=== PATIENT | male | born 1985 | race Caucasian/White ===

== ENCOUNTER 2021-12-10 11:13 | Emergency (ER) | payer OTHER, MEDICAID, SELFPAY ==
[2021-12-10 11:33] VITALS: BP 122/77; PULSE 87; RESP 20; TEMP 36.7; O2SAT 97
[2021-12-10] MEDS: SODIUM CHLORIDE 0.9% 1,000 ML 1000 ML IV (12:35)
--- NOTE | 2021-12-10 12:41 | PC.NURSE ---
Patient became diaphoretic, pale and felt like he was going to pass out patient was laid flat. Heart rate dropped into high 30's, patient remained alert and orients. Patient fearful of needles and reports I always pass out with needles
[2021-12-10 12:48] LABS: Add Manual Diff / Slide Review NO; Basophils Absolute Auto 0 /uL (0-100); Basophils Percent Auto 0.7 % (0-2); Eosinophils Absolute Auto 100 /uL (0-450); Eosinophils Percent Auto 1.8 % (2-4); Hematocrit 44.2 % (41-53); Hemoglobin 15.5 g/dL (13.5-17.5); Lymphocytes Absolute Auto 2300 /uL (1100-4500); Lymphocytes Percent Auto 41.8 % (25-40); Mean Corpuscular HGB Conc 35.2 % (30-36); Mean Corpuscular Hemoglobin 31.2 PG (26-34); Mean Corpuscular Volume 88.6 fL (80-100); Monocytes Absolute Auto 400 /uL (0-900); Monocytes Percent Auto 7.1 % (3-14); Neutrophils Absolute Auto 2600 /uL (1500-7000); Neutrophils Percent Auto 48.6 % (50-75); Platelet Count 252 X10^3/uL (150-400); Red Blood Cell Count 4.99 X10^6/uL (4.5-5.9); Red Cell Distribution Width 12.2 % (11.6-14.8); White Blood Cell Count 5.4 X10^3/uL (4.5-11.0)
--- NOTE | 2021-12-10 12:48 | ED_ITS ---
HPI - Abdominal Pain <RACHEAL Tinoco - Last Filed: 12/10/21 16:20> General Chief Complaint: Abdominal Pain Stated Complaint: Sharp pain lower left abd, faint Time Seen by Provider: 12/10/21 11:56 Source: patient Mode of arrival: Ambulatory History of Present Illness HPI narrative: This is a 36-year-old male with history of ADHD and depression presents to the emergency department complaining of left upper quadrant pain for the last 2 weeks, if they is a vagal episode which happened 3 days ago when he was pushing on his left upper quadrant, he states he felt it coming on and then kneeled down on the ground and then woke up on the floor. He denies any known fever, he states he quit taking his sertraline, Adderall, marijuana, and alcohol 1 month ago cold turkey. He states he has had some difficulty concentrating, and various neurologic complaints over the last month. He denies any audio or visual hallucinations, he denies any suicidal or homicidal ideation, he denies using any substances at this time. He states that he fears that a friend of his is drugging him with ecstasy and caffeine because he has had euphoric sensations after food and then slept for 2 days afterwards. He states that he has had chronic fatigue over the last 2 months. He states he just lost his job, he is unable to pay child support, and may lose his apartment, but he is very concerned about why he has this left upper quadrant pain. He denies any blood in his stool, he denies any dysuria or urinary complaint, he denies any fever, weakness, dizziness, shortness of breath, chest pain, back pain, rectal pain, in all discharge, testicular pain, or other symptoms. He states that his primary care providers Dr. Monsalve and he was unable to get an appointment with him any time soon. He endorses constant fears that somebody is putting drugs in his food. Related Data Home Medications Medication Instructions Recorded Confirmed No Known Home Medications 08/25/20 08/25/20 Allergies Allergy/AdvReac Type Severity Reaction Status Date / Time Penicillins AdvReac Intermediate rash Verified 12/10/21 11:36 Review of Systems <RACHEAL Tinoco - Last Filed: 12/10/21 16:20> Review of Systems Narrative: General: denies fever, chills, malaise, sweats, fatigue Head/Neck: denies headache, neck pain, dizziness Eyes: denies visual changes, eye pain Cardio: denies chest pain, palpitations, edema Respiratory: denies dyspnea, cough, orthopnea GI: Endorses left upper quadrant abdominal pain, denies nausea, vomiting, or diarrhea patient denied Toradol when offered for pain : denies dysuria, hematuria, urinary retention, frequency or incontinence MSK: denies joint pain, muscle weakness Skin: denies rash, itching, skin lesions or other Neuro: denies numbness, tingling, endorses vasovagal response with IV placement today, which was similar in nature to the vasovagal response he had 3 days ago. He denies any recent trauma Patient History <RACHEAL Tinoco - Last Filed: 12/10/21 16:20> Medical History No active medical problems Social History Smoking Status: Unknown if ever smoked Smoking Status: Unknown if ever smoked Substance Use Type: does not use Exam <RACHEAL Tinoco - Last Filed: 12/10/21 16:20> Narrative Exam Narrative: Independently reviewed vitals signs and nursing notes. General: cooperative, comfortable, in no acute distress, well developed and well groomed Head: atraumatic, symmetrical facial expressions Neck: supple, atraumatic, without lymphadenopathy. Eyes: pupils equal round and reactive, EOMI, conjunctiva normal Nose: nares patent, no rhinorrhea Mouth/Throat: uvula midline, moist mucus membranes Cardiovascular: regular rate and rhythm, no peripheral edema, warm extremities Respiratory: normal effort, able to speak in complete sentences, no audible wheezing, stridor, or rales. No retractions or tachypnea. GI: abdomen soft, nontender to palpation, nondistended, no masses, no exquisite tenderness with exam, without guarding or rebound. MSK: moves all extremities, ambulatory w/steady gait, neurovascularly intact, no weakness Skin: brisk capillary refill, no rash, no erythema Neuro: normal speech and cognition, A&O x3, normal tone Psych: mental status is grossly normal, congruent mood, normal affect, random flight of ideas, paranoid about being drugged in his food, talkative, pleasant and cooperative Initial Vital Signs Initial Vital Signs: Vital Signs Temperature 98.0 F 12/10/21 11:33 Pulse Rate 87 12/10/21 11:33 Respiratory Rate 20 12/10/21 11:33 Blood Pressure 122/77 12/10/21 11:33 Pulse Oximetry 97 12/10/21 11:33 <Shahriar Simmons DO - Last Filed: 12/10/21 16:24> Initial Vital Signs Initial Vital Signs: Vital Signs Temperature 98.0 F 12/10/21 11:33 Pulse Rate 87 12/10/21 11:33 Respiratory Rate 20 12/10/21 11:33 Blood Pressure 122/77 12/10/21 11:33 Pulse Oximetry 97 12/10/21 11:33 Course <RACHEAL Tinoco - Last Filed: 12/10/21 16:20> Orders Ordered: ED Orders 12/10/21 11:35 Consult to [employer] - [employer] Chief Stat 12/10/21 11:57 EKG-12 Lead Stat 12/10/21 12:27 CRP [C-Reactive Protein Quant] Stat Complete Blood Count AUTO DIFF Stat Comprehensive Metabolic Panel Stat Lipase Stat TSH [Thyroid Stimulating Hormone] Stat Troponin & CK Cardiac Panel Stat 12/10/21 12:52 CT abdomen pelvis w con Stat 12/10/21 14:04 UA Complete [Urinalysis and Microscopic] Stat Urine Drug Screen, Rapid Stat Discontinued Medications Sodium Chloride (Normal Saline 0.9%) 1,000 mls @ 1,000 mls/hr IV BOLUS ONE Stop: 12/10/21 13:31 Last Infusion: 12/10/21 13:55 Dose: 0 mls/hr Documented by: Admin: 12/10/21 12:35 Dose: 1,000 mls/hr Documented by: DINORAH Ketorolac Tromethamine (Ketorolac 30 Mg/Ml Vial) 15 mg IV NOW ONE Stop: 12/10/21 12:50 Last Admin: 12/10/21 16:04 Dose: Not Given Documented by: ELZA Consultations Consultation #1: Discussion with Alexia from social Work about mental health evaluation. A referral for social work was place, patient does not currently have a counselor or therapist, recommend neuropsych evaluation. 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 Stat 12/10/21 11:57 EKG-12 Lead Stat 12/10/21 12:27 CRP [C-Reactive Protein Quant] Stat Complete Blood Count AUTO DIFF Stat Comprehensive Metabolic Panel Stat Lipase Stat TSH [Thyroid Stimulating Hormone] Stat Troponin & CK Cardiac Panel Stat 12/10/21 12:52 CT abdomen pelvis w con Stat 12/10/21 14:04 UA Complete [Urinalysis and Microscopic] Stat Urine Drug Screen, Rapid Stat Discontinued Medications Sodium Chloride (Normal Saline 0.9%) 1,000 mls @ 1,000 mls/hr IV BOLUS ONE Stop: 12/10/21 13:31 Last Infusion: 12/10/21 13:55 Dose: 0 mls/hr Documented by: Admin: 12/10/21 12:35 Dose: 1,000 mls/hr Documented by: DINORAH Ketorolac Tromethamine (Ketorolac 30 Mg/Ml Vial) 15 mg IV NOW ONE Stop: 12/10/21 12:50 Last Admin: 12/10/21 16:04 Dose: Not Given Documented by: ELZA Vital Signs Vital signs: Vital Signs - 8 hr 12/10/21 11:33 12/10/21 13:13 12/10/21 13:30 Temperature 98.0 F Pulse Rate 87 71 75 Respiratory Rate 20 12 18 Blood Pressure 122/77 113/69 Pulse Oximetry 97 99 99 12/10/21 15:54 12/10/21 16:00 Temperature Pulse Rate 84 Respiratory Rate Blood Pressure 137/73 Pulse Oximetry 97 98 MDM - Abdominal Pain <RACHEAL Tinoco - Last Filed: 12/10/21 16:20> Lab Data Result diagrams: 12/10/21 12:27 12/10/21 12:27 Labs: Lab Results 12/10/21 12/10/21 12/10/21 Range/Units 12:27 12:27 12:27 WBC 5.4 (4.5-11.0) X10^3/uL RBC 4.99 (4.5-5.9) X10^6/uL Hgb 15.5 (13.5-17.5) g/dL Hct 44.2 (41-53) % MCV 88.6 (80-100) fL MCH 31.2 (26-34) PG MCHC 35.2 (30-36) % RDW 12.2 (11.6-14.8) % Plt Count 252 (150-400) X10^3/uL Neut % (Auto) 48.6 L (50-75) % Lymph % (Auto) 41.8 H (25-40) % [place] % (Auto) 7.1 (3-14) % Eos % (Auto) 1.8 L (2-4) % Baso % (Auto) 0.7 (0-2) % Neut # (Auto) 2600 (6768-1451) /uL Lymph # (Auto) 2300 (0955-6017) /uL [place] # (Auto) 400 (0-900) /uL Eos # (Auto) 100 (0-450) /uL Baso # (Auto) 0 (0-100) /uL Sodium 141 (137-145) mmol/L Potassium 4.4 (3.4-5.1) mmol/L Chloride 104 (98-107) mmol/L Carbon Dioxide 26 (22-32) mmol/L BUN 14 (9-20) mg/dL Creatinine 0.85 (0.66-1.25) mg/dL Estimated GFR > 60.0 (>60) mL/min BUN/Creatinine Ratio 16.5 (6-22) Glucose 93 (70-100) mg/dL Calcium 9.6 (8.4-10.2) mg/dL Total Bilirubin 1.2 (0.2-1.3) mg/dL AST 38 (17-59) IU/L ALT 40 (<50) IU/L Alkaline Phosphatase 36 L (38-126) U/L Total Creatine Kinase 76 (55-170) U/L CK-MB (CK-2) TNP CK-MB (CK-2) Rel Index TNP Troponin I < 0.012 (0.01-0.034) ng/mL C-Reactive Protein (<1.0) mg/dL Total Protein 8.3 H (6.3-8.2) g/dL Albumin 5.1 H (3.5-5.0) g/dL Globulin 3.2 (1.7-4.1) g/dL Albumin/Globulin Ratio 1.6 (1.0-2.8) Lipase 298 (23-300) U/L TSH (0.47-4.68) uIU/mL Urine Color Urine Appearance Urine pH (4.5-8.0) Ur Specific [place] (1.000-1.035) Urine Protein (Negative) Urine Glucose (UA) (Negative) g/dL Urine Ketones (NEGATIVE) Urine Occult Blood (Negative) Urine Nitrate (Negative) Urine Bilirubin (NEGATIVE) Urine Urobilinogen (0.2) E.U./dL Ur Leukocyte Esterase (NEGATIVE) Urine RBC (0-5/HPF) Urine WBC (0-5/HPF) Urine Bacteria (None) Ur Culture Indicated? U Opiates 300ng/mL cut (Negative) Ur Oxycodone Screen (Negative) Urine Methadone Screen (Negative) Ur Barbiturates Screen (Negative) U Tricyclic Antidepress (Negative) Ur Phencyclidine Scrn (Negative) Ur Amphetamines Screen (Negative) U Methamphetamines Scrn (Negative) Ur MDMA Scrn (Ecstasy) (Negative) U Benzodiazepines Scrn (Negative) Urine Cocaine Screen (Negative) U Marijuana (THC) Screen (Negative) 12/10/21 12/10/21 12/10/21 Range/Units 12:27 12:27 14:04 WBC (4.5-11.0) X10^3/uL RBC (4.5-5.9) X10^6/uL Hgb (13.5-17.5) g/dL Hct (41-53) % MCV (80-100) fL MCH (26-34) PG MCHC (30-36) % RDW (11.6-14.8) % Plt Count (150-400) X10^3/uL Neut % (Auto) (50-75) % Lymph % (Auto) (25-40) % [place] % (Auto) (3-14) % Eos % (Auto) (2-4) % Baso % (Auto) (0-2) % Neut # (Auto) (3761-6572) /uL Lymph # (Auto) (8969-9999) /uL [place] # (Auto) (0-900) /uL Eos # (Auto) (0-450) /uL Baso # (Auto) (0-100) /uL Sodium (137-145) mmol/L Potassium (3.4-5.1) mmol/L Chloride (98-107) mmol/L Carbon Dioxide (22-32) mmol/L BUN (9-20) mg/dL Creatinine (0.66-1.25) mg/dL Estimated GFR (>60) mL/min BUN/Creatinine Ratio (6-22) Glucose (70-100) mg/dL Calcium (8.4-10.2) mg/dL Total Bilirubin (0.2-1.3) mg/dL AST (17-59) IU/L ALT (<50) IU/L Alkaline Phosphatase (38-126) U/L Total Creatine Kinase (55-170) U/L CK-MB (CK-2) CK-MB (CK-2) Rel Index Troponin I (0.01-0.034) ng/mL C-Reactive Protein < 0.5 (<1.0) mg/dL Total Protein (6.3-8.2) g/dL Albumin (3.5-5.0) g/dL Globulin (1.7-4.1) g/dL Albumin/Globulin Ratio (1.0-2.8) Lipase (23-300) U/L TSH 1.21 (0.47-4.68) uIU/mL Urine Color Yellow Urine Appearance Clear Urine pH 7.0 (4.5-8.0) Ur Specific [place] <=1.005 (1.000-1.035) Urine Protein Negative (Negative) Urine Glucose (UA) Negative (Negative) g/dL Urine Ketones Negative (NEGATIVE) Urine Occult Blood Negative (Negative) Urine Nitrate Negative (Negative) Urine Bilirubin Negative (NEGATIVE) Urine Urobilinogen 0.2 (0.2) E.U./dL Ur Leukocyte Esterase Negative (NEGATIVE) Urine RBC None seen (0-5/HPF) Urine WBC None seen (0-5/HPF) Urine Bacteria None seen (None) Ur Culture Indicated? Cult not indicated U Opiates 300ng/mL cut (Negative) Ur Oxycodone Screen (Negative) Urine Methadone Screen (Negative) Ur Barbiturates Screen (Negative) U Tricyclic Antidepress (Negative) Ur Phencyclidine Scrn (Negative) Ur Amphetamines Screen (Negative) U Methamphetamines Scrn (Negative) Ur MDMA Scrn (Ecstasy) (Negative) U Benzodiazepines Scrn (Negative) Urine Cocaine Screen (Negative) U Marijuana (THC) Screen (Negative) 12/10/21 Range/Units 14:04 WBC (4.5-11.0) X10^3/uL RBC (4.5-5.9) X10^6/uL Hgb (13.5-17.5) g/dL Hct (41-53) % MCV (80-100) fL MCH (26-34) PG MCHC (30-36) % RDW (11.6-14.8) % Plt Count (150-400) X10^3/uL Neut % (Auto) (50-75) % Lymph % (Auto) (25-40) % [place] % (Auto) (3-14) % Eos % (Auto) (2-4) % Baso % (Auto) (0-2) % Neut # (Auto) (7886-2685) /uL Lymph # (Auto) (1872-5602) /uL [place] # (Auto) (0-900) /uL Eos # (Auto) (0-450) /uL Baso # (Auto) (0-100) /uL Sodium (137-145) mmol/L Potassium (3.4-5.1) mmol/L Chloride (98-107) mmol/L Carbon Dioxide (22-32) mmol/L BUN (9-20) mg/dL Creatinine (0.66-1.25) mg/dL Estimated GFR (>60) mL/min BUN/Creatinine Ratio (6-22) Glucose (70-100) mg/dL Calcium (8.4-10.2) mg/dL Total Bilirubin (0.2-1.3) mg/dL AST (17-59) IU/L ALT (<50) IU/L Alkaline Phosphatase (38-126) U/L Total Creatine Kinase (55-170) U/L CK-MB (CK-2) CK-MB (CK-2) Rel Index Troponin I (0.01-0.034) ng/mL C-Reactive Protein (<1.0) mg/dL Total Protein (6.3-8.2) g/dL Albumin (3.5-5.0) g/dL Globulin (1.7-4.1) g/dL Albumin/Globulin Ratio (1.0-2.8) Lipase (23-300) U/L TSH (0.47-4.68) uIU/mL Urine Color Urine Appearance Urine pH (4.5-8.0) Ur Specific [place] (1.000-1.035) Urine Protein (Negative) Urine Glucose (UA) (Negative) g/dL Urine Ketones (NEGATIVE) Urine Occult Blood (Negative) Urine Nitrate (Negative) Urine Bilirubin (NEGATIVE) Urine Urobilinogen (0.2) E.U./dL Ur Leukocyte Esterase (NEGATIVE) Urine RBC (0-5/HPF) Urine WBC (0-5/HPF) Urine Bacteria (None) Ur Culture Indicated? U Opiates 300ng/mL cut Negative (Negative) Ur Oxycodone Screen Negative (Negative) Urine Methadone Screen Negative (Negative) Ur Barbiturates Screen Negative (Negative) U Tricyclic Antidepress Negative (Negative) Ur Phencyclidine Scrn Negative (Negative) Ur Amphetamines Screen Negative (Negative) U Methamphetamines Scrn Negative (Negative) Ur MDMA Scrn (Ecstasy) Negative (Negative) U Benzodiazepines Scrn Negative (Negative) Urine Cocaine Screen Negative (Negative) U Marijuana (THC) Screen Negative (Negative) Imaging Data CT scan - abdomen/pelvis: Radiologist's Impression: PROCEDURE:? CT ABDOMEN PELVIS W CON ? INDICATIONS:? LUQ pain x 2 weeks, ? TECHNIQUE:? After the administration of oral and IV contrast, axial sections were acquired from the lung bases to the pubic symphysis.? Coronal and sagittal reformats were performed.? For radiation dose reduction, the following was used:? automated exposure control, adjustment of mA and/or kV according to patient size. ? COMPARISON:? None. ? FINDINGS:? Image quality:? Excellent.? ? Lung bases:? Unremarkable.? ? Heart:? No significant findings. ? ? ABDOMEN: Liver:? Unremarkable.? ? Gallbladder:? Unremarkable.? ? Biliary ducts:? Unremarkable.? ? Pancreas:? Unremarkable.? ? Spleen:? Unremarkable.? ? Adrenal Glands:? Unremarkable.? ? Kidneys and Ureters:? No hydronephrosis can be seen involving either kidney.? The kidneys demonstrate normal size and enhance symmetrically. ? Stomach and Bowel:? Stomach, small bowel loops, and colon are unremarkable.? A moderate amount of stool can be seen within the colon. A normal appendix is incidentally noted.? Peritoneum:? No abnormal intraperitoneal fluid.? No free air.? ? Ventral Wall: ? No hernia.? Abdominal Nodes:? No retroperitoneal or mesenteric adenopathy by size criteria.? Vessels:? Aorta and inferior vena cava are normal in size.? ? PELVIS: Pelvic Organs:? Unremarkable.? ? Bladder:? Unremarkable.? ? Pelvic Nodes: No enlarged lymph nodes.? Miscellaneous: No inguinal hernias are seen. ? ? ? Bones:? Mild dextroconvex scoliotic curvature is seen.? ? 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 ? ? IMPRESSION:? ? There is a moderate amount of stool seen within the colon. Please correlate with an underlying history of constipation.? ? Normal appearing spleen and left kidney.? No hydronephrosis. ? 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 Dictated by: Alec Rudolph M.D. on 12/10/2021 at 12:08 ? ? Approved by: Alec Rudolph M.D. on 12/10/2021 at 12:10 ? ECG Data Interpretation: EKG reviewed by myself and Dr. Simmons reveals normal sinus rhythm at [79] bpm with regular axis and intervals. No STEMI, ST segment changes, arrhythmia, or acute ischemic changes. MDM Narrative Medical decision making narrative: This is a 36-year-old male who presents to the emergency department with 2 weeks of left upper quadrant abdominal pain which he associates with an episode of syncope 3 days ago when he was pushing on his left upper quadrant. Patient quit taking his sertraline, Adderall, marijuana, and alcohol 1 month ago without physician guidance. He endorses having neuro psychological complaints since common feeling chronically fatigued. He is concerned that somebody is drugging his food with ecstasy, caffeine, and sedatives. Patient has multiple paranoid ideas and a social work referral was placed. Patient would benefit from a mental health evaluation he. His primary care providers Dr. Monsalve. Patient states his last BM was 1 or more days ago. He states that his last bowel movem ent was firm and hard. His CT abdomen shows a moderate amount of stool, which clinically correlates to constipation. There is no free air, or free fluid in his abdomen. All of his lab work is unremarkable, CRP is negative, troponin negative, urine drug screen was negative, no leukocytosis, no elevation in liver enzymes, lipase is 298 without priors to compare to, UA was negative for abnormality. Please see Alexia from Social Work's Note. Patient understands to follow-up with his primary care provider regarding his abrupt medication cessation, his likely under treated mental health situation, he was given referral to schedule Behavioral Health to follow up with and establish a counselor. Patient understands to follow up accordingly and will return to the emergency department for any new or worsening symptoms. Patient denies any audiovisual hallucinations, any homicidal or suicidal ideation, or any intent to hurt himself. He has a supportive family, and the safety contract to follow-up with his primary care provider about this. He was given resources for state insurance benefits from social Work. Patient is appropriate and amenable to discharge home. Vital signs are stable on repeat examination is unremarkable. Patient has been informed of results. Patient has been given strict return to ER precautions for any new or worsening symptoms. Patient understands to follow up closely with outpatient providers as instructed. Patient understands plan and agrees to discharge home. All questions and concerns answered at this time. <Shahriar Simmons, DO - Last Filed: 12/10/21 16:24> Lab Data Labs: Lab Results 12/10/21 12/10/21 12/10/21 Range/Units 12:27 12:27 12:27 WBC 5.4 (4.5-11.0) X10^3/uL RBC 4.99 (4.5-5.9) X10^6/uL Hgb 15.5 (13.5-17.5) g/dL Hct 44.2 (41-53) % MCV 88.6 (80-100) fL MCH 31.2 (26-34) PG MCHC 35.2 (30-36) % RDW 12.2 (11.6-14.8) % Plt Count 252 (150-400) X10^3/uL Neut % (Auto) 48.6 L (50-75) % Lymph % (Auto) 41.8 H (25-40) % [place] % (Auto) 7.1 (3-14) % Eos % (Auto) 1.8 L (2-4) % Baso % (Auto) 0.7 (0-2) % Neut # (Auto) 2600 (8034-8029) /uL Lymph # (Auto) 2300 (4492-0017) /uL [place] # (Auto) 400 (0-900) /uL Eos # (Auto) 100 (0-450) /uL Baso # (Auto) 0 (0-100) /uL Sodium 141 (137-145) mmol/L Potassium 4.4 (3.4-5.1) mmol/L Chloride 104 (98-107) mmol/L Carbon Dioxide 26 (22-32) mmol/L BUN 14 (9-20) mg/dL Creatinine 0.85 (0.66-1.25) mg/dL Estimated GFR > 60.0 (>60) mL/min BUN/Creatinine Ratio 16.5 (6-22) Glucose 93 (70-100) mg/dL Calcium 9.6 (8.4-10.2) mg/dL Total Bilirubin 1.2 (0.2-1.3) mg/dL AST 38 (17-59) IU/L ALT 40 (<50) IU/L Alkaline Phosphatase 36 L (38-126) U/L Total Creatine Kinase 76 (55-170) U/L CK-MB (CK-2) TNP CK-MB (CK-2) Rel Index TNP Troponin I < 0.012 (0.01-0.034) ng/mL C-Reactive Protein (<1.0) mg/dL Total Protein 8.3 H (6.3-8.2) g/dL Albumin 5.1 H (3.5-5.0) g/dL Globulin 3.2 (1.7-4.1) g/dL Albumin/Globulin Ratio 1.6 (1.0-2.8) Lipase 298 (23-300) U/L TSH (0.47-4.68) uIU/mL Urine Color Urine Appearance Urine pH (4.5-8.0) Ur Specific [place] (1.000-1.035) Urine Protein (Negative) Urine Glucose (UA) (Negative) g/dL Urine Ketones (NEGATIVE) Urine Occult Blood (Negative) Urine Nitrate (Negative) Urine Bilirubin (NEGATIVE) Urine Urobilinogen (0.2) E.U./dL Ur Leukocyte Esterase (NEGATIVE) Urine RBC (0-5/HPF) Urine WBC (0-5/HPF) Urine Bacteria (None) Ur Culture Indicated? U Opiates 300ng/mL cut (Negative) Ur Oxycodone Screen (Negative) Urine Methadone Screen (Negative) Ur Barbiturates Screen (Negative) U Tricyclic Antidepress (Negative) Ur Phencyclidine Scrn (Negative) Ur Amphetamines Screen (Negative) U Methamphetamines Scrn (Negative) Ur MDMA Scrn (Ecstasy) (Negative) U Benzodiazepines Scrn (Negative) Urine Cocaine Screen (Negative) U Marijuana (THC) Screen (Negative) 12/10/21 12/10/21 12/10/21 Range/Units 12:27 12:27 14:04 WBC (4.5-11.0) X10^3/uL RBC (4.5-5.9) X10^6/uL Hgb (13.5-17.5) g/dL Hct (41-53) % MCV (80-100) fL MCH (26-34) PG MCHC (30-36) % RDW (11.6-14.8) % Plt Count (150-400) X10^3/uL Neut % (Auto) (50-75) % Lymph % (Auto) (25-40) % [place] % (Auto) (3-14) % Eos % (Auto) (2-4) % Baso % (Auto) (0-2) % Neut # (Auto) (8222-6768) /uL Lymph # (Auto) (1271-0738) /uL [place] # (Auto) (0-900) /uL Eos # (Auto) (0-450) /uL Baso # (Auto) (0-100) /uL Sodium (137-145) mmol/L Potassium (3.4-5.1) mmol/L Chloride (98-107) mmol/L Carbon Dioxide (22-32) mmol/L BUN (9-20) mg/dL Creatinine (0.66-1.25) mg/dL Estimated GFR (>60) mL/min BUN/Creatinine Ratio (6-22) Glucose (70-100) mg/dL Calcium (8.4-10.2) mg/dL Total Bilirubin (0.2-1.3) mg/dL AST (17-59) IU/L ALT (<50) IU/L Alkaline Phosphatase (38-126) U/L Total Creatine Kinase (55-170) U/L CK-MB (CK-2) CK-MB (CK-2) Rel Index Troponin I (0.01-0.034) ng/mL C-Reactive Protein < 0.5 (<1.0) mg/dL Total Protein (6.3-8.2) g/dL Albumin (3.5-5.0) g/dL Globulin (1.7-4.1) g/dL Albumin/Globulin Ratio (1.0-2.8) Lipase (23-300) U/L TSH 1.21 (0.47-4.68) uIU/mL Urine Color Yellow Urine Appearance Clear Urine pH 7.0 (4.5-8.0) Ur Specific [place] <=1.005 (1.000-1.035) Urine Protein Negative (Negative) Urine Glucose (UA) Negative (Negative) g/dL Urine Ketones Negative (NEGATIVE) Urine Occult Blood Negative (Negative) Urine Nitrate Negative (Negative) Urine Bilirubin Negative (NEGATIVE) Urine Urobilinogen 0.2 (0.2) E.U./dL Ur Leukocyte Esterase Negative (NEGATIVE) Urine RBC None seen (0-5/HPF) Urine WBC None seen (0-5/HPF) Urine Bacteria None seen (None) Ur Culture Indicated? Cult not indicated U Opiates 300ng/mL cut (Negative) Ur Oxycodone Screen (Negative) Urine Methadone Screen (Negative) Ur Barbiturates Screen (Negative) U Tricyclic Antidepress (Negative) Ur Phencyclidine Scrn (Negative) Ur Amphetamines Screen (Negative) U Methamphetamines Scrn (Negative) Ur MDMA Scrn (Ecstasy) (Negative) U Benzodiazepines Scrn (Negative) Urine Cocaine Screen (Negative) U Marijuana (THC) Screen (Negative) 12/10/21 Range/Units 14:04 WBC (4.5-11.0) X10^3/uL RBC (4.5-5.9) X10^6/uL Hgb (13.5-17.5) g/dL Hct (41-53) % MCV (80-100) fL MCH (26-34) PG MCHC (30-36) % RDW (11.6-14.8) % Plt Count (150-400) X10^3/uL Neut % (Auto) (50-75) % Lymph % (Auto) (25-40) % [place] % (Auto) (3-14) % Eos % (Auto) (2-4) % Baso % (Auto) (0-2) % Neut # (Auto) (5897-5782) /uL Lymph # (Auto) (3188-3718) /uL [place] # (Auto) (0-900) /uL Eos # (Auto) (0-450) /uL Baso # (Auto) (0-100) /uL Sodium (137-145) mmol/L Potassium (3.4-5.1) mmol/L Chloride (98-107) mmol/L Carbon Dioxide (22-32) mmol/L BUN (9-20) mg/dL Creatinine (0.66-1.25) mg/dL Estimated GFR (>60) mL/min BUN/Creatinine Ratio (6-22) Glucose (70-100) mg/dL Calcium (8.4-10.2) mg/dL Total Bilirubin (0.2-1.3) mg/dL AST (17-59) IU/L ALT (<50) IU/L Alkaline Phosphatase (38-126) U/L Total Creatine Kinase (55-170) U/L CK-MB (CK-2) CK-MB (CK-2) Rel Index Troponin I (0.01-0.034) ng/mL C-Reactive Protein (<1.0) mg/dL Total Protein (6.3-8.2) g/dL Albumin (3.5-5.0) g/dL Globulin (1.7-4.1) g/dL Albumin/Globulin Ratio (1.0-2.8) Lipase (23-300) U/L TSH (0.47-4.68) uIU/mL Urine Color Urine Appearance Urine pH (4.5-8.0) Ur Specific [place] (1.000-1.035) Urine Protein (Negative) Urine Glucose (UA) (Negative) g/dL Urine Ketones (NEGATIVE) Urine Occult Blood (Negative) Urine Nitrate (Negative) Urine Bilirubin (NEGATIVE) Urine Urobilinogen (0.2) E.U./dL Ur Leukocyte Esterase (NEGATIVE) Urine RBC (0-5/HPF) Urine WBC (0-5/HPF) Urine Bacteria (None) Ur Culture Indicated? U Opiates 300ng/mL cut Negative (Negative) Ur Oxycodone Screen Negative (Negative) Urine Methadone Screen Negative (Negative) Ur Barbiturates Screen Negative (Negative) U Tricyclic Antidepress Negative (Negative) Ur Phencyclidine Scrn Negative (Negative) Ur Amphetamines Screen Negative (Negative) U Methamphetamines Scrn Negative (Negative) Ur MDMA Scrn (Ecstasy) Negative (Negative) U Benzodiazepines Scrn Negative (Negative) Urine Cocaine Screen Negative (Negative) U Marijuana (THC) Screen Negative (Negative) Discharge Plan Departure Patient Disposition: Home Clinical Impression: Vaso-vagal reaction Constipation Qualifiers: Constipation type: unspecified constipation type Qualified Code(s): K59.00 - Constipation, unspecified Instructions: Constipation, Anxiety Disorders Activity Restrictions/Additional Instructions: *You have been diagnosed with constipation. Please follow-up with Dr. Monsalve after scheduled appointment later this week. Please include more high-fiber foods like fresh fruits and vegetables in her diet, stay hydrated with plenty of liquids, you may use MiraLax as needed for occasional constipation. Please call and make an appointment as [facility] for an evaluation. Thank you for your time today, on but that would not finding dangerous causes to your symptoms. I hope you feel better soon, please follow-up with Dr. Monsalve and [facility] for your needs in the future. *What to do: *Please continue to take your regular medications as directed. [ ] New medication prescriptions sent to your pharmacy: [ ] [ ] New medication written as a paper prescription [ x] No new medications given *Please follow up with your primary care provider in 2-3 days, call for an appo intment. Let them know you were seen in the Emergency Department and that we asked that you be seen for follow-up. We will electronically transmit a record of today's note if your PCP is in our system *If you do not have a primary care provider please contact [phone] to establish care with one of the [facility] primary care providers. *Return to Emergency Department if you should have any new, worsening or concerning symptoms, such as [fever greater than 101F, chills, worsening pain, persistent vomiting or other bothersome symptoms] Prescriptions: No Action No Known Home Medications 0RF Referrals: [facility] [Provider Group] Lulu Monsalve MD [Primary Care Provider] - <Shahriar Simmons, - Last Filed: 12/10/21 16:24> Cosign ED Attending Cosignature Attestation: Dr Simmons Co-Sign Statement: I was available for consultation during this patient's emergency department visit. This chart is signed by myself for administrative purposes only. I did not have direct contact with this patient during this visit. They were seen independently by the APC.
--- NOTE | 2021-12-10 12:52 | DI.CT.S_ITS ---
PROCEDURE: CT ABDOMEN PELVIS W CON INDICATIONS: LUQ pain x 2 weeks, TECHNIQUE: After the administration of oral and IV contrast, axial sections were acquired from the lung bases to the pubic symphysis. Coronal and sagittal reformats were performed. For radiation dose reduction, the following was used: automated exposure control, adjustment of mA and/or kV according to patient size. COMPARISON: None. FINDINGS: Image quality: Excellent. Lung bases: Unremarkable. Heart: No significant findings. ABDOMEN: Liver: Unremarkable. Gallbladder: Unremarkable. Biliary ducts: Unremarkable. Pancreas: Unremarkable. Spleen: Unremarkable. Adrenal Glands: Unremarkable. Kidneys and Ureters: No hydronephrosis can be seen involving either kidney. The kidneys demonstrate normal size and enhance symmetrically. Stomach and Bowel: Stomach, small bowel loops, and colon are unremarkable. A moderate amount of stool can be seen within the colon. A normal appendix is incidentally noted. Peritoneum: No abnormal intraperitoneal fluid. No free air. Ventral Wall: No hernia. Abdominal Nodes: No retroperitoneal or mesenteric adenopathy by size criteria. Vessels: Aorta and inferior vena cava are normal in size. PELVIS: Pelvic Organs: Unremarkable. Bladder: Unremarkable. Pelvic Nodes: No enlarged lymph nodes. Miscellaneous: No inguinal hernias are seen. Bones: Mild dextroconvex scoliotic curvature is seen. 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 IMPRESSION: There is a moderate amount of stool seen within the colon. Please correlate with an underlying history of constipation. Normal appearing spleen and left kidney. No hydronephrosis. 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 on 12/10/2021 at 12:08 Approved by: Alec Rudolph M.D. on 12/10/2021 at 12:10
[2021-12-10 13:04] LABS: Alanine Aminotransferase 40 IU/L (<50); Albumin 5.1 g/dL (3.5-5.0); Albumin Globulin Ratio 1.6 (1.0-2.8); Alkaline Phosphatase 36 U/L (38-126); Aspartate Aminotransferase 38 IU/L (17-59); BUN Creatinine Ratio 16.5 (6-22); Bilirubin Total 1.2 mg/dL (0.2-1.3); Blood Urea Nitrogen 14 mg/dL (9-20); Calcium 9.6 mg/dL (8.4-10.2); Carbon Dioxide 26 mmol/L (22-32); Chloride 104 mmol/L (98-107); Creatine Kinase 76 U/L (55-170); Estimated Glomerular Filt Rate > 60.0 mL/min (>60); Globulin 3.2 g/dL (1.7-4.1); Glucose 93 mg/dL (70-100); HEMOLYSIS < 15 (0-50); Lipase 298 U/L (23-300); Potassium 4.4 mmol/L (3.4-5.1); Sodium 141 mmol/L (137-145); Total Protein 8.3 g/dL (6.3-8.2)
--- NOTE | 2021-12-10 13:09 | PC.NURSE ---
While patient was at CT mother reports great concern of patients mental health.Over the last two months patient has been concerned that people are pranking him or poisoning him. Mother reports he is on the verge of losing his housing and son. He just quit his job due to fear of people pranking him Patient and family have been attempting to get help but its road block after road block It appears that things have been worse since patient quit his medications.
[2021-12-10 13:13] VITALS: PULSE 71; RESP 12; O2SAT 99
[2021-12-10 13:16] LABS: Troponin I < 0.012 ng/mL (0.01-0.034)
[2021-12-10 13:30] VITALS: BP 113/69; PULSE 75; RESP 18; O2SAT 99
[2021-12-10 13:35] LABS: Thyroid Stimulating Hormone 1.21 uIU/mL (0.47-4.68)
[2021-12-10 13:39] LABS: C-Reactive Protein Quant < 0.5 mg/dL (<1.0)
[2021-12-10 14:10] LABS: Appearance Urine UA CLEAR; Bilirubin Urine UA NEGATIVE (NEGATIVE); Color Urine UA YELLOW; Glucose Urine UA NEGATIVE (Negative); Ketones Urine UA NEGATIVE (NEGATIVE); Leukocyte Esterase Urine UA NEGATIVE (NEGATIVE); Nitrite Urine UA NEGATIVE (Negative); Occult Blood Urine UA NEGATIVE (Negative); Protein Urine UA NEGATIVE (Negative); Specific Gravity Urine UA <=1.005 (1.000-1.035); Urobilinogen Urine UA 0.2 E.U./dL (0.2)
[2021-12-10 14:15] LABS: Ur Creatinine Normal (Normal); Ur Specific Gravity Normal (Normal); Urine pH Normal (Normal)
[2021-12-10 14:16] LABS: UR Morphine/Opiate cutoff 300 Negative (Negative); Urine Amphetamines Negative (Negative); Urine Barbiturates Negative (Negative); Urine Benzodiazepines Negative (Negative); Urine Cocaine Negative (Negative); Urine MDMA Negative (Negative); Urine Methadone Negative (Negative); Urine Methamphetamines Negative (Negative); Urine Oxycodone Negative (Negative); Urine Phencyclidine Negative (Negative); Urine Tetrahydrocannabinol Negative (Negative); Urine Tricyclic Antidepressant Negative (Negative)
[2021-12-10 15:03] LABS: Bacteria Urine None Seen; Culture Indicated Urine Cult Not Indicated; RBC Urine None Seen (0-5/HPF); WBC Urine None Seen (0-5/HPF)
--- NOTE | 2021-12-10 15:39 | CM.SWNOTE ---
GENERATION TECHNICIAN Assessment Note GENERATION TECHNICIAN receives consult and enters room to meet with patient. Patient is 36 y/o male who presents to ED due to concern for abdominal pain. In triage patient endorsed concern for his previous friends poisioning him and concern for housing and income. Patient presents to ED with mother. Patient provides consent for mother to be present. Mother privately endorses concern to RN about patient's MH. Patient presents as A/Ox4 euthymic, stable and congruent with mood. Patient continues to report that he is better than ever, on solid ground emotionally, spiritually and mentally. Patient endorses concern for physiological systems such as adrenal glands, fatigue, exhaustion and low energy after every task. Patient endorses his PCP is Dr. Monsalve and he set up appt for 01/02/22 but would like to be seen sooner if possible. Patient endorses he stopped taking Adderall, Sertraline and ETOH a few month ago. Patient denies HI and SI. Patient states that he wants to work and help others but has been impacted by his energy level. Patient endorses concern with income and states he does not have an income at this time and is in between jobs. GENERATION TECHNICIAN discusses food and harding benefits through the state. GENERATION TECHNICIAN offers to set up patient with applying for benefits and to call Dr. Monsalve's office to try to establish a sooner appt with PCP. Patient denies concern for MH but patient's mother endorses need for MH therapist and or Psychiatrist. Patient states he is open to this but continues to deny concern for MH and endorse his mental/emotional stability. GENERATION TECHNICIAN starts patient's application for food and harding state benefits and provides information for patient to call for f/u application. Patient endorses he has a son that he has 50/50 custody of as well. GENERATION TECHNICIAN calls PCP office but patient cannot be seen sooner due to PCP's availability and patient's start date of his [employer] insurance. It is reported that patient will be added to call back list if there are any cancellations. GENERATION TECHNICIAN calls [facility] on patient's behalf and it is reported that patient will need to call to establish care and see if he qualifies. GENERATION TECHNICIAN provides patient with a list MH providers that take his insurance and crisis contacts. Patient endorses that he feels safe to d/c home. Per ED provider Renu Crew, NURSING EDUCATION SPECIALIST, patient is medically clear for d/c. It is the opinion of this GENERATION TECHNICIAN that patient is safe to d/c to home. Plan: patient to d/c to home with PCP and specialist f/u, patient to f/u with state benefits and outpatient provider search. Alexia Whyte, GENERATION TECHNICIAN
[2021-12-10 15:54] VITALS: BP 137/73; O2SAT 97
[2021-12-10 16:00] VITALS: PULSE 84; O2SAT 98
== END 2021-12-10 16:15 | disposition home or self-care (01) ==
PROVIDERS: Emergency Medicine; Emergency Provider Nurse Practitioner Critical Care Medicine; PCP Student in an Organized Health Care Education/Training Program
DX: R55 Syncope and collapse (principal); K59.00 Constipation, unspecified
CPT/HCPCS: 36415; 74177; 80053; 80305; 81001; 82550; 83690; 84443; 84484; 85025; 86140; 93005; 96360; 99284

== ENCOUNTER 2022-01-28 09:25 | Emergency (ER) | payer OTHER, MEDICAID, SELFPAY ==
[2022-01-28 09:34] VITALS: BP 131/80; PULSE 83; RESP 16; TEMP 36.3; O2SAT 99; BMI 26.5
[2022-01-28] MEDS: ONDANSETRON 4 MG/2 ML INJ IV (10:14)
[2022-01-28 10:22] LABS: Add Manual Diff / Slide Review NO; Basophils Absolute Auto 0 /uL (0-100); Basophils Percent Auto 0.5 % (0-2); Eosinophils Absolute Auto 100 /uL (0-450); Eosinophils Percent Auto 1.4 % (2-4); Hematocrit 44.7 % (41-53); Hemoglobin 16.1 g/dL (13.5-17.5); Lymphocytes Absolute Auto 2300 /uL (1100-4500); Lymphocytes Percent Auto 27.7 % (25-40); Mean Corpuscular HGB Conc 35.9 % (30-36); Mean Corpuscular Hemoglobin 31.5 PG (26-34); Mean Corpuscular Volume 87.8 fL (80-100); Monocytes Absolute Auto 600 /uL (0-900); Monocytes Percent Auto 7.6 % (3-14); Neutrophils Absolute Auto 5300 /uL (1500-7000); Neutrophils Percent Auto 62.8 % (50-75); Platelet Count 233 X10^3/uL (150-400); Red Cell Distribution Width 12.1 % (11.6-14.8); White Blood Cell Count 8.5 X10^3/uL (4.5-11.0)
[2022-01-28 10:27] LABS: INR 1.1 (0.9-1.3); Prothrombin Time 12.1 SECONDS (10.1-12.7)
[2022-01-28 10:30] LABS: PTT Partial Thromboplastin Tim 30 SECONDS (26.4-36.2)
[2022-01-28 10:31] LABS: Alanine Aminotransferase 52 IU/L (<50); Albumin 5.1 g/dL (3.5-5.0); Albumin Globulin Ratio 1.5 (1.0-2.8); Alkaline Phosphatase 45 U/L (38-126); Aspartate Aminotransferase 42 IU/L (17-59); BUN Creatinine Ratio 17.2 (6-22); Bilirubin Total 1.7 mg/dL (0.2-1.3); Blood Urea Nitrogen 17 mg/dL (9-20); Calcium 9.5 mg/dL (8.4-10.2); Carbon Dioxide 30 mmol/L (22-32); Chloride 103 mmol/L (98-107); Estimated Glomerular Filt Rate > 60 mL/min (>60); Globulin 3.5 g/dL (1.7-4.1); Glucose 97 mg/dL (70-100); HEMOLYSIS < 15 (0-50); Lipase 244 U/L (23-300); Potassium 4.4 mmol/L (3.4-5.1); Sodium 139 mmol/L (137-145); Total Protein 8.6 g/dL (6.3-8.2)
--- NOTE | 2022-01-28 12:50 | DI.US.S_ITS ---
PROCEDURE: US ABDOMEN COMPLETE INDICATIONS: LLQ PAIN; ELEVATED BILIRUBIN TECHNIQUE: Real-time scanning was performed of the abdominal and retroperitoneal organs, with image documentation. COMPARISON: [facility], CT, CT ABDOMEN PELVIS W CON, 12/10/2021, 12:57. FINDINGS: Liver: Liver is mildly prominent in size and homogeneous in echotexture. No focal liver lesions are seen. Gallbladder: No findings of gallstones or sludge are seen. The gallbladder wall is not thickened, measuring 3 mm or less. No specific pericholecystic fluid is seen. The sonographic Hayden sign is negative. Biliary ducts: Intrahepatic bile ducts are non-dilated. Extrahepatic bile duct caliber measures 4 mm. Normal is 6-7 mm or less in diameter, or 10 mm or less post-cholecystectomy. Pancreas: Visualized portions of the pancreas are sonographically normal. Spleen: Spleen is normal in size and homogeneous in echotexture. Kidneys: Kidneys are normal in size and echotexture. Right kidney measures 10.9 cm long; left kidney measures 11.5 cm long. No hydronephrosis or nephrolithiasis. No solid masses. Aorta: Visualized aorta is normal in caliber at less than 3 cm. Iliacs: Not seen, obscured by overlying bowel gas. IVC: Intrahepatic inferior vena cava is patent. Miscellaneous: No free abdominal fluid. No findings of hernia can be seen in the left lower quadrant. IMPRESSION: A cause of left lower quadrant pain is not identified. No hernia is seen. Mildly prominent liver, without a focal liver lesion. No biliary dilatation. Dictated by: Alec Rudolph M.D. on 01/28/2022 at 13:54 Approved by: Alec Rudolph M.D. on 01/28/2022 at 13:56
--- NOTE | 2022-01-28 13:39 | ED.ABDPAIN ---
HPI - Abdominal Pain <RACHEAL Tinoco - Last Filed: 01/28/22 18:44> General Chief Complaint: Abdominal Pain Stated Complaint: increasing abdominal pain/bloating,aching Time Seen by Provider: 01/28/22 12:06 History of Present Illness HPI narrative: This is a 36-year-old male who presents to the emergency department for ongoing left lower quadrant and groin pain which he states has been ongoing since his emergency department visit on 12/10/2021. Patient states that he has bloating, gas pain, generalized abdominal pain which is primarily in the left lower quadrant but he states it is transverse across his lower quadrants, in his left groin, he states that his stomach is making a lot of noises, he denies any abnormal stools, states that is he is having firm bowel movements without any abnormal changes, he denies any dysuria, testicular or scrotal pain, penile drainage, flank pain, fever, nausea, vomiting, rectal pain, or blood in his stool. Pelvis CT with contrast on 12/10/2021 for etiology of these pains, there were no abnormalities other than a moderate amount of stool seen within the colon. Patient denies any muscle spasms, weakness, incontinence, swelling or edema. Patient states that he thinks his bowels are irritable, he states that the pain is quite severe and he has not been taking anything for it. Related Data Previous Rx's Medication Instructions Recorded hydroxyzine HCl 25 mg tablet 25 mg PO BID PRN #20 tab 01/28/22 omeprazole 20 mg tablet,delayed 20 mg PO DAILY #30 tab 01/28/22 release simethicone 250 mg capsule 250 mg PO DAILY PRN #20 cap 01/28/22 Allergies Allergy/AdvReac Type Severity Reaction Status Date / Time Penicillins AdvReac Intermediate rash Verified 12/10/21 11:36 Review of Systems <RACHEAL Tinoco - Last Filed: 01/28/22 18:44> Review of Systems Narrative: General: denies fever, chills Head/Neck: denies headache, neck pain Eyes: denies visual changes, eye pain Cardio: denies chest pain, palpitations Respiratory: denies shortness of breath, cough GI: Endorses abdominal pain, primarily in left lower quadrant, denies nausea, vomiting, or diarrhea : denies dysuria, hematuria or flank pain MSK: denies new joint pain, muscle weakness or swelling Skin: denies rash, itching or wound Neuro: denies numbness, tingling, dizziness Patient History <RACHEAL Tinoco - Last Filed: 01/28/22 18:44> Medical History No active medical problems Social History Smoking Status: Unknown if ever smoked Smoking Status: Unknown if ever smoked Substance Use Type: does not use Exam <RACHEAL Tinoco - Last Filed: 01/28/22 18:44> Narrative Exam Narrative: Independently reviewed vitals signs and nursing notes. General: cooperative, comfortable, in no acute distress, well groomed Head: atraumatic, symmetrical facial expressions Neck: supple Eyes: equal round and reactive, EOMI, conjunctiva normal Nose: nares patent, no rhinorrhea Mouth/Throat: moist mucus membranes Cardiovascular: regular rate and rhythm, no peripheral edema, warm extremities Respiratory: normal effort, able to speak in complete sentences, no audible wheezing, stridor, or rales. No retractions or tachypnea. GI: abdomen soft, nontender to palpation, nondistended, no masses, no exquisite tenderness with exam, without guarding or rebound. MSK: moves all extremities, neurovascularly intact, no weakness, normal tone Skin: brisk capillary refill, no rash, no erythema Neuro: normal speech and cognition, A&O x3 Psych: mental status is grossly normal, congruent mood, normal affect, pleasant and cooperative Initial Vital Signs Initial Vital Signs: Vital Signs Temperature 97.4 F L 01/28/22 09:34 Pulse Rate 83 01/28/22 09:34 Respiratory Rate 16 01/28/22 09:34 Blood Pressure 131/80 01/28/22 09:34 Pulse Oximetry 99 01/28/22 09:34 <Jo Jolly DO - Last Filed: 01/29/22 07:10> Initial Vital Signs Initial Vital Signs: Vital Signs Temperature 97.4 F L 01/28/22 09:34 Pulse Rate 83 01/28/22 09:34 Respiratory Rate 16 01/28/22 09:34 Blood Pressure 131/80 01/28/22 09:34 Pulse Oximetry 99 01/28/22 09:34 Course <RACHEAL Tinoco - Last Filed: 01/28/22 18:44> Orders Ordered: Discontinued Medications Ondansetron HCl (Ondansetron 4 Mg/2 Ml Inj) 4 mg IV NOW ONE Stop: 01/28/22 09:53 Last Admin: 01/28/22 10:14 Dose: 4 mg Documented by: AZUL Vital Signs Vital signs: Vital Signs - 8 hr 01/28/22 15:14 Pulse Rate 81 Respiratory Rate 16 Blood Pressure 126/76 Pulse Oximetry 99 <Jo Jolly DO - Last Filed: 01/29/22 07:10> Orders Ordered: Discontinued Medications Ondansetron HCl (Ondansetron 4 Mg/2 Ml Inj) 4 mg IV NOW ONE Stop: 01/28/22 09:53 Last Admin: 01/28/22 10:14 Dose: 4 mg Documented by: AZUL Vital Signs Vital signs: Vital Signs - 8 hr 01/28/22 15:14 Pulse Rate 81 Respiratory Rate 16 Blood Pressure 126/76 Pulse Oximetry 99 MDM - Abdominal Pain <RACHEAL Tinoco - Last Filed: 01/28/22 18:44> Lab Data Result diagrams: 01/28/22 10:11 01/28/22 10:11 Labs: Lab Results 01/28/22 01/28/22 01/28/22 Range/Units 10:11 10:11 10:11 WBC 8.5 (4.5-11.0) X10^3/uL RBC 5.10 (4.5-5.9) X10^6/uL Hgb 16.1 (13.5-17.5) g/dL Hct 44.7 (41-53) % MCV 87.8 (80-100) fL MCH 31.5 (26-34) PG MCHC 35.9 (30-36) % RDW 12.1 (11.6-14.8) % Plt Count 233 (150-400) X10^3/uL Neut % (Auto) 62.8 (50-75) % Lymph % (Auto) 27.7 (25-40) % [place] % (Auto) 7.6 (3-14) % Eos % (Auto) 1.4 L (2-4) % Baso % (Auto) 0.5 (0-2) % Neut # (Auto) 5300 (3886-0062) /uL Lymph # (Auto) 2300 (4427-2084) /uL [place] # (Auto) 600 (0-900) /uL Eos # (Auto) 100 (0-450) /uL Baso # (Auto) 0 (0-100) /uL ESR (0-15) MM/HR PT 12.1 (10.1-12.7) SECONDS INR 1.1 (0.9-1.3) APTT 30 (26.4-36.2) SECONDS Sodium 139 (137-145) mmol/L Potassium 4.4 (3.4-5.1) mmol/L Chloride 103 (98-107) mmol/L Carbon Dioxide 30 (22-32) mmol/L BUN 17 (9-20) mg/dL Creatinine 0.99 (0.66-1.25) mg/dL Estimated GFR > 60 (>60) mL/min BUN/Creatinine Ratio 17.2 (6-22) Glucose 97 (70-100) mg/dL Calcium 9.5 (8.4-10.2) mg/dL Total Bilirubin 1.7 H (0.2-1.3) mg/dL AST 42 (17-59) IU/L ALT 52 H (<50) IU/L Alkaline Phosphatase 45 (38-126) U/L C-Reactive Protein (<1.0) mg/dL Total Protein 8.6 H (6.3-8.2) g/dL Albumin 5.1 H (3.5-5.0) g/dL Globulin 3.5 (1.7-4.1) g/dL Albumin/Globulin Ratio 1.5 (1.0-2.8) Lipase 244 (23-300) U/L Procalcitonin (<0.5) ng/mL Urine Color Urine Appearance Urine pH (4.5-8.0) Ur Specific [place] (1.000-1.035) Urine Protein (Negative) Urine Glucose (UA) (Negative) g/dL Urine Ketones (NEGATIVE) Urine Occult Blood (Negative) Urine Nitrate (Negative) Urine Bilirubin (NEGATIVE) Urine Urobilinogen (0.2) E.U./dL Ur Leukocyte Esterase (NEGATIVE) Urine RBC (0-5/HPF) Urine WBC (0-5/HPF) Urine Bacteria (None) Ur Culture Indicated? Micro UA Comment Ur Chlamydia DNA (PCR) N gonorrhoeae DNA (PCR) 01/28/22 01/28/22 01/28/22 Range/Units 10:11 10:11 10:11 WBC (4.5-11.0) X10^3/uL RBC (4.5-5.9) X10^6/uL Hgb (13.5-17.5) g/dL Hct (41-53) % MCV (80-100) fL MCH (26-34) PG MCHC (30-36) % RDW (11.6-14.8) % Plt Count (150-400) X10^3/uL Neut % (Auto) (50-75) % Lymph % (Auto) (25-40) % [place] % (Auto) (3-14) % Eos % (Auto) (2-4) % Baso % (Auto) (0-2) % Neut # (Auto) (3989-5420) /uL Lymph # (Auto) (1115-9511) /uL [place] # (Auto) (0-900) /uL Eos # (Auto) (0-450) /uL Baso # (Auto) (0-100) /uL ESR 6 (0-15) MM/HR PT (10.1-12.7) SECONDS INR (0.9-1.3) APTT (26.4-36.2) SECONDS Sodium (137-145) mmol/L Potassium (3.4-5.1) mmol/L Chloride (98-107) mmol/L Carbon Dioxide (22-32) mmol/L BUN (9-20) mg/dL Creatinine (0.66-1.25) mg/dL Estimated GFR (>60) mL/min BUN/Creatinine Ratio (6-22) Glucose (70-100) mg/dL Calcium (8.4-10.2) mg/dL Total Bilirubin (0.2-1.3) mg/dL AST (17-59) IU/L ALT (<50) IU/L Alkaline Phosphatase (38-126) U/L C-Reactive Protein < 0.5 (<1.0) mg/dL Total Protein (6.3-8.2) g/dL Albumin (3.5-5.0) g/dL Globulin (1.7-4.1) g/dL Albumin/Globulin Ratio (1.0-2.8) Lipase (23-300) U/L Procalcitonin 0.07 (<0.5) ng/mL Urine Color Urine Appearance Urine pH (4.5-8.0) Ur Specific [place] (1.000-1.035) Urine Protein (Negative) Urine Glucose (UA) (Negative) g/dL Urine Ketones (NEGATIVE) Urine Occult Blood (Negative) Urine Nitrate (Negative) Urine Bilirubin (NEGATIVE) Urine Urobilinogen (0.2) E.U./dL Ur Leukocyte Esterase (NEGATIVE) Urine RBC (0-5/HPF) Urine WBC (0-5/HPF) Urine Bacteria (None) Ur Culture Indicated? Micro UA Comment Ur Chlamydia DNA (PCR) N gonorrhoeae DNA (PCR) 01/28/22 01/28/22 Range/Units 13:40 14:17 WBC (4.5-11.0) X10^3/uL RBC (4.5-5.9) X10^6/uL Hgb (13.5-17.5) g/dL Hct (41-53) % MCV (80-100) fL MCH (26-34) PG MCHC (30-36) % RDW (11.6-14.8) % Plt Count (150-400) X10^3/uL Neut % (Auto) (50-75) % Lymph % (Auto) (25-40) % [place] % (Auto) (3-14) % Eos % (Auto) (2-4) % Baso % (Auto) (0-2) % Neut # (Auto) (7509-0911) /uL Lymph # (Auto) (6240-1136) /uL [place] # (Auto) (0-900) /uL Eos # (Auto) (0-450) /uL Baso # (Auto) (0-100) /uL ESR (0-15) MM/HR PT (10.1-12.7) SECONDS INR (0.9-1.3) APTT (26.4-36.2) SECONDS Sodium (137-145) mmol/L Potassium (3.4-5.1) mmol/L Chloride (98-107) mmol/L Carbon Dioxide (22-32) mmol/L BUN (9-20) mg/dL Creatinine (0.66-1.25) mg/dL Estimated GFR (>60) mL/min BUN/Creatinine Ratio (6-22) Glucose (70-100) mg/dL Calcium (8.4-10.2) mg/dL Total Bilirubin (0.2-1.3) mg/dL AST (17-59) IU/L ALT (<50) IU/L Alkaline Phosphatase (38-126) U/L C-Reactive Protein (<1.0) mg/dL Total Protein (6.3-8.2) g/dL Albumin (3.5-5.0) g/dL Globulin (1.7-4.1) g/dL Albumin/Globulin Ratio (1.0-2.8) Lipase (23-300) U/L Procalcitonin (<0.5) ng/mL Urine Color Yellow Urine Appearance Clear Urine pH 6.5 (4.5-8.0) Ur Specific [place] 1.015 (1.000-1.035) Urine Protein Negative (Negative) Urine Glucose (UA) Negative (Negative) g/dL Urine Ketones Negative (NEGATIVE) Urine Occult Blood Negative (Negative) Urine Nitrate Negative (Negative) Urine Bilirubin Negative (NEGATIVE) Urine Urobilinogen 0.2 (0.2) E.U./dL Ur Leukocyte Esterase Negative (NEGATIVE) Urine RBC None seen (0-5/HPF) Urine WBC None seen (0-5/HPF) Urine Bacteria None seen (None) Ur Culture Indicated? Cult not indicated Micro UA Comment Microscopic normal Ur Chlamydia DNA (PCR) Not detected N gonorrhoeae DNA (PCR) Not detected Imaging Data US - abdomen: Radiologist's Impression: PROCEDURE:? US ABDOMEN COMPLETE ? INDICATIONS:? LLQ PAIN; ELEVATED BILIRUBIN ? TECHNIQUE:? Real-time scanning was performed of the abdominal and retroperitoneal organs, with image documentation.? ? COMPARISON:? [facility], CT, CT ABDOMEN PELVIS W CON, 12/10/2021, 12:57. ? FINDINGS:? ? Liver:? Liver is mildly prominent in size and homogeneous in echotexture.? No focal liver lesions are seen. ? Gallbladder:? No findings of gallstones or sludge are seen.? The gallbladder wall is not thickened, measuring 3 mm or less.? No specific pericholecystic fluid is seen.? The sonographic Hayden sign is negative.? ? Biliary ducts:? Intrahepatic bile ducts are non-dilated.? Extrahepatic bile duct caliber measures 4 mm.? Normal is 6-7 mm or less in diameter, or 10 mm or less post-cholecystectomy.? ? Pancreas:? Visualized portions of the pancreas are sonographically normal.? ? Spleen:? Spleen is normal in size and homogeneous in echotexture.? ? Kidneys:? Kidneys are normal in size and echotexture.? Right kidney measures 10.9 cm long; left kidney measures 11.5 cm long.? No hydronephrosis or nephrolithiasis.? No solid masses.? ? Aorta:? Visualized aorta is normal in caliber at less than 3 cm.? ? Iliacs:? Not seen, obscured by overlying bowel gas. ? IVC:? Intrahepatic inferior vena cava is patent.? ? Miscellaneous:? No free abdominal fluid.? ? No findings of hernia can be seen in the left lower quadrant. ? ? IMPRESSION:? A cause of left lower quadrant pain is not identified.? No hernia is seen. ? Mildly prominent liver, without a focal liver lesion. ? No biliary dilatation. ? Dictated by: Alec Rudolph M.D. on 01/28/2022 at 13:54 ? ? Approved by: Alec Rudolph M.D. on 01/28/2022 at 13:56 ? MDM Narrative Medical decision making narrative: This is a 36-year-old male who presents to the emergency department for a 2nd time for his generalized abdominal pain which today he states is primarily in the left lower quadrant. Patient endorses left-sided groin pain, occasional nausea, relieved by large meal, denies any bowel changes, fever, vomiting, chills, blood in his urine or his stool, dysuria, scrotum pain, or other concerning symptom. Patient's symptoms today are not much different than they were on 12/10/2021 except that patient does not say that he is constipated at this time. He reports his bowels have been normal, his CT abdomen pelvis on 12/10/2021 showed moderate amount of stool, normal appearing sling and left kidney without without hydronephrosis. Today patient's vital signs are normal, he endorses no fever, vomiting, exquisite tenderness with abdominal exam, does not have any abnormal stool, denies hemorrhoid, denies any urinary complaints. Lab work is grossly normal, no leukocytosis, no electrolyte abnormality, total bilirubin is mildly increased from 1.2-1.7, AST is relatively the same, ALT is mildly elevated at 52 compared to 40 in November. CRP is negative, UA is negative, microscopic was negative for all abnormalities, urine chlamydia and gonorrhea were also negative. Abdominal ultrasound was completed for elevated bilirubin without any tenderness in the right upper quadrant, ultrasound shows the cause for left lower quadrant pain is not identified, there is no hernia visible, he has a mildly prominent liver without focal liver lesion, no biliary dilatation. Discussed indications for CT imaging, he did not have any acute change from his prior visit with a recent CT scan, encouraged him to follow-up with Dr. Monsalve and recommend colonoscopy, H pylori testing, trial of antidepressants for irritable bowel syndrome or colitis. Patient endorses some symptoms of heartburn, prescribed him omeprazole to take for the next two weeks to see if his symptoms improve, patient endorses a lot of gas pain yesterday, prescribe simethicone for his symptom, also prescribed hydroxyzine for his nausea/anxiety. Encourage close follow-up with his primary care provider, no emergent causes to his symptoms were found today. No peritoneal signs on abdominal exam. Patient remains p.o. tolerant. Serial abdominal exam without increase in abdominal pain. Given history and exam, low suspicion for acute abdominal process, such as acute cholecystitis, pancreatitis, perforated viscus, atypical appendicitis, colitis, diverticulitis or torsion. Extensive conversation about ER return precautions and need for close follow-up. Patient is appropriate and amenable to discharge home. Vital signs are stable on repeat examination is unremarkable. Patient has been informed of results. Patient has been given strict return to ER precautions for any new or worsening symptoms. Patient understands to follow up closely with outpatient providers as instructed. Patient understands plan and agrees to discharge home. All questions and concerns answered at this time. <Jo Jolly, DO - Last Filed: 01/29/22 07:10> Lab Data Labs: Lab Results 05/16/22 05/16/22 05/16/22 Range/Units 10:11 10:11 10:11 WBC 8.5 (4.5-11.0) X10^3/uL RBC 5.10 (4.5-5.9) X10^6/uL Hgb 16.1 (13.5-17.5) g/dL Hct 44.7 (41-53) % MCV 87.8 (80-100) fL MCH 31.5 (26-34) PG MCHC 35.9 (30-36) % RDW 12.1 (11.6-14.8) % Plt Count 233 (150-400) X10^3/uL Neut % (Auto) 62.8 (50-75) % Lymph % (Auto) 27.7 (25-40) % [place] % (Auto) 7.6 (3-14) % Eos % (Auto) 1.4 L (2-4) % Baso % (Auto) 0.5 (0-2) % Neut # (Auto) 5300 (6772-2057) /uL Lymph # (Auto) 2300 (9295-0603) /uL [place] # (Auto) 600 (0-900) /uL Eos # (Auto) 100 (0-450) /uL Baso # (Auto) 0 (0-100) /uL ESR (0-15) MM/HR PT 12.1 (10.1-12.7) SECONDS INR 1.1 (0.9-1.3) APTT 30 (26.4-36.2) SECONDS Sodium 139 (137-145) mmol/L Potassium 4.4 (3.4-5.1) mmol/L Chloride 103 (98-107) mmol/L Carbon Dioxide 30 (22-32) mmol/L BUN 17 (9-20) mg/dL Creatinine 0.99 (0.66-1.25) mg/dL Estimated GFR > 60 (>60) mL/min BUN/Creatinine Ratio 17.2 (6-22) Glucose 97 (70-100) mg/dL Calcium 9.5 (8.4-10.2) mg/dL Total Bilirubin 1.7 H (0.2-1.3) mg/dL AST 42 (17-59) IU/L ALT 52 H (<50) IU/L Alkaline Phosphatase 45 (38-126) U/L C-Reactive Protein (<1.0) mg/dL Total Protein 8.6 H (6.3-8.2) g/dL Albumin 5.1 H (3.5-5.0) g/dL Globulin 3.5 (1.7-4.1) g/dL Albumin/Globulin Ratio 1.5 (1.0-2.8) Lipase 244 (23-300) U/L Procalcitonin (<0.5) ng/mL Urine Color Urine Appearance Urine pH (4.5-8.0) Ur Specific [place] (1.000-1.035) Urine Protein (Negative) Urine Glucose (UA) (Negative) g/dL Urine Ketones (NEGATIVE) Urine Occult Blood (Negative) Urine Nitrate (Negative) Urine Bilirubin (NEGATIVE) Urine Urobilinogen (0.2) E.U./dL Ur Leukocyte Esterase (NEGATIVE) Urine RBC (0-5/HPF) Urine WBC (0-5/HPF) Urine Bacteria (None) Ur Culture Indicated? Micro UA Comment Ur Chlamydia DNA (PCR) N gonorrhoeae DNA (PCR) 01/28/22 01/28/22 01/28/22 Range/Units 10:11 10:11 10:11 WBC (4.5-11.0) X10^3/uL RBC (4.5-5.9) X10^6/uL Hgb (13.5-17.5) g/dL Hct (41-53) % MCV (80-100) fL MCH (26-34) PG MCHC (30-36) % RDW (11.6-14.8) % Plt Count (150-400) X10^3/uL Neut % (Auto) (50-75) % Lymph % (Auto) (25-40) % [place] % (Auto) (3-14) % Eos % (Auto) (2-4) % Baso % (Auto) (0-2) % Neut # (Auto) (6978-2889) /uL Lymph # (Auto) (7091-6382) /uL [place] # (Auto) (0-900) /uL Eos # (Auto) (0-450) /uL Baso # (Auto) (0-100) /uL ESR 6 (0-15) MM/HR PT (10.1-12.7) SECONDS INR (0.9-1.3) APTT (26.4-36.2) SECONDS Sodium (137-145) mmol/L Potassium (3.4-5.1) mmol/L Chloride (98-107) mmol/L Carbon Dioxide (22-32) mmol/L BUN (9-20) mg/dL Creatinine (0.66-1.25) mg/dL Estimated GFR (>60) mL/min BUN/Creatinine Ratio (6-22) Glucose (70-100) mg/dL Calcium (8.4-10.2) mg/dL Total Bilirubin (0.2-1.3) mg/dL AST (17-59) IU/L ALT (<50) IU/L Alkaline Phosphatase (38-126) U/L C-Reactive Protein < 0.5 (<1.0) mg/dL Total Protein (6.3-8.2) g/dL Albumin (3.5-5.0) g/dL Globulin (1.7-4.1) g/dL Albumin/Globulin Ratio (1.0-2.8) Lipase (23-300) U/L Procalcitonin 0.07 (<0.5) ng/mL Urine Color Urine Appearance Urine pH (4.5-8.0) Ur Specific [place] (1.000-1.035) Urine Protein (Negative) Urine Glucose (UA) (Negative) g/dL Urine Ketones (NEGATIVE) Urine Occult Blood (Negative) Urine Nitrate (Negative) Urine Bilirubin (NEGATIVE) Urine Urobilinogen (0.2) E.U./dL Ur Leukocyte Esterase (NEGATIVE) Urine RBC (0-5/HPF) Urine WBC (0-5/HPF) Urine Bacteria (None) Ur Culture Indicated? Micro UA Comment Ur Chlamydia DNA (PCR) N gonorrhoeae DNA (PCR) 01/28/22 01/28/22 Range/Units 13:40 14:17 WBC (4.5-11.0) X10^3/uL RBC (4.5-5.9) X10^6/uL Hgb (13.5-17.5) g/dL Hct (41-53) % MCV (80-100) fL MCH (26-34) PG MCHC (30-36) % RDW (11.6-14.8) % Plt Count (150-400) X10^3/uL Neut % (Auto) (50-75) % Lymph % (Auto) (25-40) % [place] % (Auto) (3-14) % Eos % (Auto) (2-4) % Baso % (Auto) (0-2) % Neut # (Auto) (3246-1617) /uL Lymph # (Auto) (1480-2188) /uL [place] # (Auto) (0-900) /uL Eos # (Auto) (0-450) /uL Baso # (Auto) (0-100) /uL ESR (0-15) MM/HR PT (10.1-12.7) SECONDS INR (0.9-1.3) APTT (26.4-36.2) SECONDS Sodium (137-145) mmol/L Potassium (3.4-5.1) mmol/L Chloride (98-107) mmol/L Carbon Dioxide (22-32) mmol/L BUN (9-20) mg/dL Creatinine (0.66-1.25) mg/dL Estimated GFR (>60) mL/min BUN/Creatinine Ratio (6-22) Glucose (70-100) mg/dL Calcium (8.4-10.2) mg/dL Total Bilirubin (0.2-1.3) mg/dL AST (17-59) IU/L ALT (<50) IU/L Alkaline Phosphatase (38-126) U/L C-Reactive Protein (<1.0) mg/dL Total Protein (6.3-8.2) g/dL Albumin (3.5-5.0) g/dL Globulin (1.7-4.1) g/dL Albumin/Globulin Ratio (1.0-2.8) Lipase (23-300) U/L Procalcitonin (<0.5) ng/mL Urine Color Yellow Urine Appearance Clear Urine pH 6.5 (4.5-8.0) Ur Specific [place] 1.015 (1.000-1.035) Urine Protein Negative (Negative) Urine Glucose (UA) Negative (Negative) g/dL Urine Ketones Negative (NEGATIVE) Urine Occult Blood Negative (Negative) Urine Nitrate Negative (Negative) Urine Bilirubin Negative (NEGATIVE) Urine Urobilinogen 0.2 (0.2) E.U./dL Ur Leukocyte Esterase Negative (NEGATIVE) Urine RBC None seen (0-5/HPF) Urine WBC None seen (0-5/HPF) Urine Bacteria None seen (None) Ur Culture Indicated? Cult not indicated Micro UA Comment Microscopic normal Ur Chlamydia DNA (PCR) Not detected N gonorrhoeae DNA (PCR) Not detected Discharge Plan Departure Patient Disposition: Home Clinical Impression: Abdominal pain Qualifiers: Abdominal location: left lower quadrant Qualified Code(s): R10.32 - Left lower quadrant pain Instructions: Irritable Bowel Syndrome, DI for Abdominal Pain-Adult, DI for Colitis Activity Restrictions/Additional Instructions: *You have been diagnosed with abdominal pain without any clear cause to your left lower quadrant pain. This is most likely irritable bowel syndrome which can be a mix of constipation, diarrhea, gas. This could also be diverticulitis but is less likely since you do not have symptoms of infection, and you did not have diverticulosis on your CT scan in November, antibiotics not indicated at this time. It is reassuring that your lab work came back normal, that you do not have any dangerous findings on the abdominal ultrasound, you do have bowel gas present in your colon so this is likely to be gas pains, it could be ulcerative colitis or peptic ulcer disease either together or separately. Please try taking omeprazole daily for the next two weeks in the morning before any food and see if this helps resolve some of your abdominal pain. Practice meditation, find a therapist, try to avoid spicy foods, lactose, sugars, caffeine, and anything that would trigger your stomach to be uncomfortable. It is reassuring that you do not have any blood in your stool, you not having fevers or vomiting. Please follow-up with Dr. Monsalve for any outpatient needs. I have sent simethicone to the pharmacy, this is for gas, please try it to see if this helps, omeprazole for daily ulcer prevention, and hydroxyzine for nausea, anxiety. Please use Tylenol and avoid ibuprofen, eat a diet low in fat, caffeine, spice, and acid. *What to do: *Please continue to take your regular medications as directed. [x ] New medication prescriptions sent to your pharmacy: [ [facility]] [ ] New medication written as a paper prescription [ ] No new medications given *Please follow up with your primary care provider in 2-3 days, call for an appointment. Let them know you were seen in the Emergency Department and that we asked that you be seen for follow-up. We will electronically transmit a record of today's note if your PCP is in our system *If you do not have a primary care provider please contact [phone] to establish care with one of the [facility] primary care providers. *Return to Emergency Department if you should have any new, worsening or concerning symptoms, such as [fever greater than 101F, chills, worsening pain, persistent vomiting or other bothersome symptoms] Prescriptions: New omeprazole 20 mg tablet,delayed release (DR/EC) 20 mg PO DAILY Qty: 30 0RF hydroxyzine HCl 25 mg tablet 25 mg PO BID PRN (Reason: nausea ) Qty: 20 0RF simethicone 250 mg capsule 250 mg PO DAILY PRN (Reason: abdominal distention/gas) Qty: 20 0RF Referrals: Lulu Monsalve MD [Primary Care Provider] - <Jo Jolly DO - Last Filed: 01/29/22 07:10> Cosign ED Attending Fernandezature Attestation: I was immediately available in the department for consultation. Documentation has been reviewed. I agree with assessment and plan.
[2022-01-28 14:00] LABS: Appearance Urine UA CLEAR; Bilirubin Urine UA NEGATIVE (NEGATIVE); Color Urine UA YELLOW; Glucose Urine UA NEGATIVE (Negative); Ketones Urine UA NEGATIVE (NEGATIVE); Leukocyte Esterase Urine UA NEGATIVE (NEGATIVE); Nitrite Urine UA NEGATIVE (Negative); Occult Blood Urine UA NEGATIVE (Negative); Protein Urine UA NEGATIVE (Negative); Specific Gravity Urine UA 1.015 (1.000-1.035); Urobilinogen Urine UA 0.2 E.U./dL (0.2); pH Urine UA 6.5 (4.5-8.0)
[2022-01-28 14:02] LABS: Bacteria Urine None Seen; Culture Indicated Urine Cult Not Indicated; RBC Urine None Seen (0-5/HPF); Urine Comments Microscopic Normal; WBC Urine None Seen (0-5/HPF)
[2022-01-28 15:00] LABS: C-Reactive Protein Quant < 0.5 mg/dL (<1.0)
[2022-01-28 15:05] LABS: Erythrocyte Sedimentation Rate 6 MM/HR (0-15)
[2022-01-28 15:14] VITALS: BP 126/76; PULSE 81; RESP 16; O2SAT 99
[2022-01-28 15:15] LABS: Procalcitonin 0.07 ng/mL (<0.5)
[2022-01-28 15:47] LABS: Urine N gonorrhoeae NOT DETECTED
[2022-01-28 15:48] LABS: Urine Chlamydia NOT DETECTED
== END 2022-01-28 15:14 | disposition home or self-care (01) ==
PROVIDERS: Emergency Medicine; Emergency Provider Nurse Practitioner Critical Care Medicine; PCP Student in an Organized Health Care Education/Training Program
DX: R10.32 Left lower quadrant pain (principal)
CPT/HCPCS: 36415; 76700; 80053; 81001; 83690; 84145; 85025; 85610; 85651; 85730; 86140; 87491; 87591; 93005; 93010; 96374; 99284; J2405

== ENCOUNTER 2023-08-22 13:53 | Emergency (ER) | payer OTHER, MEDICAID, SELFPAY ==
[2023-08-22 13:54] VITALS: BP 127/85; PULSE 82; RESP 16; TEMP 36.6; O2SAT 100; BMI 11.1
[2023-08-22 15:11] LABS: Influenza A - CEPHEID Flu A NEGATIVE (NEGATIVE); Influenza B - CEPHEID Flu B NEGATIVE (NEGATIVE); Respiratory Syncytial Virus Negative (Negative)
[2023-08-22 15:19] LABS: COVID-19 CEPHEID 4-PLEX PCR Negative (Negative)
== END 2023-08-22 17:52 | disposition left against medical advice (07) ==
PROVIDERS: Emergency Provider Emergency Medicine; PCP Student in an Organized Health Care Education/Training Program
DX: R53.83 Other fatigue (principal)
CPT/HCPCS: 0241U; 99281

== ENCOUNTER 2023-08-25 11:35 | Emergency (ER) | payer OTHER, MEDICAID, SELFPAY ==
[2023-08-25 11:38] VITALS: BP 130/78; PULSE 84; RESP 16; TEMP 36.5; O2SAT 100; BMI 23.3
--- NOTE | 2023-08-25 13:33 | ED.GENADULT ---
HPI - General Adult General Chief complaint: Weakness Stated complaint: not feeling better, weight loss Time Seen by Provider: 08/25/23 13:15 Source: patient Mode of arrival: Ambulatory Limitations: no limitations History of Present Illness HPI narrative: This is a 37-year-old male prior history of ADHD and depression not on any daily medications. Patient presents with several months of feeling unwell he describes a weight loss of approximately 30 lb with decreased appetite. Patient denies fevers but has felt chilled and sweaty at times. Denies chest pain or pressure. Has felt dizzy intermittently. Came today because he felt like he was going to pass out. Patient denies any vomiting. Has had nausea sometimes. Has had abdominal pain in the past but improved after being seen in January of 2022. He states he is having bowel movements he is mostly eating protein shakes states his bowel movements are consistent with this. He denies any black or bloody stools. Denies urinary symptoms. Describes pain all over his body like a wire being stripped. Patient states it is everywhere. It sort of waxes and wanes in intensity. Denies any daily medications. Denies any surgeries. Patient does smoke sometimes, states alcoholic drinks once weekly. Uses marijuana but denies other recreational drugs. Did abstain from marijuana from a period of time to see if this helped his symptoms. He does note that hot showers or sometimes helpful but he does not have a lot of nausea or vomiting with the pain. Patient does not have a primary care physician currently. He does not endorse any suicidal thoughts today but has had thoughts in the past when his dad and his cat was killed several months ago. He is amenable to meeting with manager social responsibility he also mentions housing insecurity. Related Data Home Medications Medication Instructions Recorded Confirmed dextroamphetamine-amphetamine ER 25 mg PO DAILY 02/27/22 02/27/22 25 mg 24hr capsule,extend release (Adderall XR) Previous Rx's Medication Instructions Recorded hydroxyzine HCl 25 mg tablet 25 mg PO BID PRN nausea #20 tabs 01/28/22 omeprazole 20 mg tablet,delayed 20 mg PO DAILY #30 tabs 01/28/22 release simethicone 250 mg capsule 250 mg PO DAILY PRN abdominal 01/28/22 distention/gas #20 caps Allergies Allergy/AdvReac Type Severity Reaction Status Date / Time NSAIDS (Non-Steroidal Allergy Verified 02/27/22 10:06 Anti-Inflamma Penicillins AdvReac Intermediate rash Verified 02/27/22 10:06 Review of Systems Review of Systems ROS Unobtainable: All systems reviewed & are unremarkable except as noted in HPI and below Patient History Medical History Attention deficit disorder (ADD) in adult Hyperlipemia Depression No active medical problems Social History Smoking Status: Current some day smoker Smoking Status: Current some day smoker alcohol intake frequency: holidays/special occasions only Substance Use Type: marijuana Exam Narrative Exam Narrative: GEN: well nourished, well appearing male, alert and oriented x 3, patient appears to be in mild distress. HEENT: Atraumatic, pupils are equal round reactive to light, extraocular movements are intact, nares are clear. HEART: Regular rate and rhythm without murmur, clicks, rubs. LUNGS:Lungs clear to auscultation, no wheezes, rales, crackles, chest moves symmetrically ABD:bowel sounds normal, soft, non-tender, no guarding, rebound, rigidity, no masses noted, no hepatosplenomegaly :No CVA tenderness MSCL: full range of motion NEURO:CN 2-12 intact, sensation normal. PSYCH: Describes situational depression and suicidal thoughts with loss of family and pets. Initial Vital Signs Initial Vital Signs: Vital Signs Temperature 97.7 F 08/25/23 11:38 Pulse Rate 84 08/25/23 11:38 Respiratory Rate 16 08/25/23 11:38 Blood Pressure 130/78 08/25/23 11:38 Pulse Oximetry 100 08/25/23 11:38 Oxygen Delivery Method Room Air 08/25/23 11:38 Course Orders Ordered: Discontinued Medications Acetaminophen (Acetaminophen 325 Mg Tablet) 975 mg PO NOW ONE Stop: 08/25/23 14:11 Last Admin: 08/25/23 14:24 Dose: 975 mg Documented By: RYDER Vital Signs Vital signs: Vital Signs - 8 hr 08/25/23 11:38 Temperature 97.7 F Pulse Rate 84 Respiratory Rate 16 Blood Pressure 130/78 Pulse Oximetry 100 Oxygen Delivery Method Room Air Medical Decision Making Lab Data 08/25/23 14:00 08/25/23 14:00 Labs: Lab Results 08/25/23 08/25/23 Range/Units 13:54 14:00 WBC 9.7 (4.5-11.0) X10^3/uL RBC 4.90 (4.5-5.9) X10^6/uL Hgb 15.2 (13.5-17.5) g/dL Hct 43.3 (41-53) % MCV 88.4 (80-100) fL MCH 31.1 (26-34) PG MCHC 35.2 (30-36) % RDW 12.4 (11.6-14.8) % Plt Count 220 (150-400) X10^3/uL Neut % (Auto) 76.7 H (50-75) % Lymph % (Auto) 15.7 L (25-40) % Tucker % (Auto) 6.8 (3-14) % Eos % (Auto) 0.5 L (2-4) % Baso % (Auto) 0.3 (0-2) % Neut # (Auto) 7400 H (2000-4143) /uL Lymph # (Auto) 1500 (7756-9891) /uL Tucker # (Auto) 700 (0-900) /uL Eos # (Auto) 0 (0-450) /uL Baso # (Auto) 0 (0-100) /uL Sodium 139 (137-145) mmol/L Potassium 4.2 (3.4-5.1) mmol/L Chloride 102 (98-107) mmol/L Carbon Dioxide 26 (22-32) mmol/L BUN 13 (9-20) mg/dL Creatinine 0.84 (0.66-1.25) mg/dL Estimated GFR > 60 (>60) mL/min BUN/Creatinine Ratio 15.5 (6-22) Glucose 100 (70-100) mg/dL Calcium 9.9 (8.4-10.2) mg/dL Total Bilirubin 1.6 H (0.2-1.3) mg/dL AST 32 (17-59) IU/L ALT 19 (<50) IU/L Alkaline Phosphatase 41 (38-126) U/L Total Protein 8.1 (6.3-8.2) g/dL Albumin 5.0 (3.5-5.0) g/dL Globulin 3.1 (1.7-4.1) g/dL Albumin/Globulin Ratio 1.6 (1.0-2.8) Lipase 439 H (23-300) U/L Urine Color Yellow Urine Appearance Clear Urine pH 6.5 (4.5-8.0) Ur Specific [place] <=1.005 (1.000-1.035) Urine Protein Negative (Negative) Urine Glucose (UA) Negative (Negative) g/dL Urine Ketones Negative (NEGATIVE) Urine Occult Blood Negative (Negative) Urine Nitrate Negative (Negative) Urine Bilirubin Negative (NEGATIVE) Urine Urobilinogen 0.2 (0.2) E.U./dL Ur Leukocyte Esterase Negative (NEGATIVE) Urine RBC None seen (0-5/HPF) Urine WBC None seen (0-5/HPF) Ur Squamous Epith Cells None seen (0-5/HPF) Urine Bacteria None seen (None) Ur Culture Indicated? Cult not indicated U Opiates 300ng/mL cut Negative (Negative) Ur Oxycodone Screen Negative (Negative) Urine Methadone Screen Negative (Negative) Ur Barbiturates Screen Negative (Negative) U Tricyclic Antidepress Negative (Negative) Ur Phencyclidine Scrn Negative (Negative) Ur Amphetamines Screen Negative (Negative) U Methamphetamines Scrn Negative (Negative) Ur MDMA Scrn (Ecstasy) Negative (Negative) U Benzodiazepines Scrn Negative (Negative) Urine Cocaine Screen Negative (Negative) U Marijuana (THC) Screen Positive H (Negative) Ethyl Alcohol < 10 ( - 10) mg/dL MDM Narrative Medical decision making narrative: Patient's workup including CBC shows normal white count, platelets and hemoglobin/hematocrit. Slight leftward shift. Sodium electrolytes renal function are normal bilirubin is 1.6 was 1.7 and 2021 with otherwise appropriate LFTs lipase is 439. Patient describes pain all over his body unlikely source of his current symptoms. He did have abdominal ultrasound at that time in 2021 which showed mild prominent liver without any focal lesion or biliary dilation and patient does not really describe to have any exam findings that prompt or other imaging today. UA is overall appropriate. UDS positive for marijuana but otherwise negative. ETOH is negative. Patient had a COVID/influenza/RSV panel on the he did not wish to receive this again. Patient has had longstanding persistent symptoms no clear acute cause found here today recommended to follow up with primary care. Was felt patient might benefit from meeting with [employer] regarding housing and security and he does describe some chronic depressive symptoms although no acute suicidal ideation or homicidal ideation or hallucinations or other changes. Patient was going to meet with manager social responsibility but elected not to. He is felt safe and appropriate for discharge. Discharge Plan Departure Patient Disposition: Home Clinical Impression: Fatigue Activity Restrictions/Additional Instructions: Please follow up for primary care for recheck and further workup as needed. Included is card with several new primary care providers in the area that are taking new patients. Your bilirubin is slightly elevated this was elevated at your last visit. At that time there was some mild changes to your liver on ultrasound. Please follow-up or return for fevers, passing out, new chest pain or shortness of breath, persistent vomiting, black or bloody stools or other new or concerning changes. Prescriptions: No Action dextroamphetamine-amphetamine [Adderall XR] 25 mg capsule,extended release 24hr 25 mg PO DAILY omeprazole 20 mg tablet,delayed release (DR/EC) 20 mg PO DAILY Qty: 30 0RF hydroxyzine HCl 25 mg tablet 25 mg PO BID PRN (Reason: nausea ) Qty: 20 0RF simethicone 250 mg capsule 250 mg PO DAILY PRN (Reason: abdominal distention/gas) Qty: 20 0RF Referrals: Lulu Monsalve MD [Primary Care Provider] - Stand Alone Forms: Patient Portal/API
--- NOTE | 2023-08-25 13:49 | PC.NURSE ---
patient states that he has been having flu-like symptoms for the last 2 months. He has muscle aches which recently began to increase. He had a time when his muscle aches were replaced by tremors and that resolved and his aches came back and got worse. He also states that he recently lost his cat and his dad and his love of his life left him 4 years ago.
[2023-08-25 14:09] LABS: Add Manual Diff / Slide Review NO; Basophils Absolute Auto 0 /uL (0-100); Basophils Percent Auto 0.3 % (0-2); Eosinophils Absolute Auto 0 /uL (0-450); Eosinophils Percent Auto 0.5 % (2-4); Hematocrit 43.3 % (41-53); Hemoglobin 15.2 g/dL (13.5-17.5); Lymphocytes Absolute Auto 1500 /uL (1100-4500); Lymphocytes Percent Auto 15.7 % (25-40); Mean Corpuscular HGB Conc 35.2 % (30-36); Mean Corpuscular Hemoglobin 31.1 PG (26-34); Mean Corpuscular Volume 88.4 fL (80-100); Monocytes Absolute Auto 700 /uL (0-900); Monocytes Percent Auto 6.8 % (3-14); Neutrophils Absolute Auto 7400 /uL (1500-7000); Neutrophils Percent Auto 76.7 % (50-75); Platelet Count 220 X10^3/uL (150-400); Red Cell Distribution Width 12.4 % (11.6-14.8); White Blood Cell Count 9.7 X10^3/uL (4.5-11.0)
[2023-08-25 14:15] LABS: Appearance Urine UA CLEAR; Bilirubin Urine UA NEGATIVE (NEGATIVE); Color Urine UA YELLOW; Glucose Urine UA NEGATIVE (Negative); Ketones Urine UA NEGATIVE (NEGATIVE); Leukocyte Esterase Urine UA NEGATIVE (NEGATIVE); Nitrite Urine UA NEGATIVE (Negative); Occult Blood Urine UA NEGATIVE (Negative); Protein Urine UA NEGATIVE (Negative); Specific Gravity Urine UA <=1.005 (1.000-1.035); Urobilinogen Urine UA 0.2 E.U./dL (0.2); pH Urine UA 6.5 (4.5-8.0)
[2023-08-25] MEDS: ACETAMINOPHEN 325 MG TABLET 975 MG PO (14:24)
[2023-08-25 14:29] LABS: Alanine Aminotransferase 19 IU/L (<50); Albumin Globulin Ratio 1.6 (1.0-2.8); Alkaline Phosphatase 41 U/L (38-126); Aspartate Aminotransferase 32 IU/L (17-59); BUN Creatinine Ratio 15.5 (6-22); Bilirubin Total 1.6 mg/dL (0.2-1.3); Blood Urea Nitrogen 13 mg/dL (9-20); Calcium 9.9 mg/dL (8.4-10.2); Carbon Dioxide 26 mmol/L (22-32); Chloride 102 mmol/L (98-107); Estimated Glomerular Filt Rate > 60 mL/min (>60); Globulin 3.1 g/dL (1.7-4.1); Glucose 100 mg/dL (70-100); HEMOLYSIS < 15 (0-50); Lipase 439 U/L (23-300); Potassium 4.2 mmol/L (3.4-5.1); Sodium 139 mmol/L (137-145); Total Protein 8.1 g/dL (6.3-8.2)
[2023-08-25 14:30] LABS: Ethanol (ETOH) < 10 mg/dL
[2023-08-25 14:34] LABS: Bacteria Urine None Seen; Culture Indicated Urine Cult Not Indicated; RBC Urine None Seen (0-5/HPF); Squamous Epithelial Cell Urine None Seen (0-5/HPF); WBC Urine None Seen (0-5/HPF)
[2023-08-25 14:35] LABS: UR Morphine/Opiate cutoff 300 Negative (Negative); Ur Creatinine Normal (Normal); Ur Specific Gravity Normal (Normal); Urine Amphetamines Negative (Negative); Urine Barbiturates Negative (Negative); Urine Benzodiazepines Negative (Negative); Urine Cocaine Negative (Negative); Urine MDMA Negative (Negative); Urine Methadone Negative (Negative); Urine Methamphetamines Negative (Negative); Urine Oxycodone Negative (Negative); Urine Phencyclidine Negative (Negative); Urine Tetrahydrocannabinol Positive (Negative); Urine Tricyclic Antidepressant Negative (Negative); Urine pH Normal (Normal)
[2023-08-25 15:39] VITALS: BP 113/69; PULSE 70; RESP 12; O2SAT 98
--- NOTE | 2023-08-25 15:47 | CM.SWNOTE ---
ED [facility] note Patient is 37 y/o male who presents to ED due to concern for feeling unwell, decreased appetite and unintentional weight loss. [facility] [facility] receives consult due to patient's reported concern for access to housing, food and basic needs. Patient is unsure of current PCP, patient has [employer] insurance. RN informs [facility] [facility] that patient's father and cat recently, and patient also lost his job. [facility] [employer] [facility] enters room to meet with patient, patient presents as A/Ox4. Patient states so many things that have happened. Patient states he is staying with friends but he is not sure where he is staying tonight. Patient states he has been to [facility] but they stated they cannot assist him. [facility] [employer] SPEAR discusses other options such as the [employer], patient states he will try to access services from them. Patient denies current food stamps, patient states he is in so much pain he is not able to make any decisions and is not ready to talk with [facility] further. [facility] [facility] offered to assist in setting patient up with PCP and patient declined at this time. Patient is medically clear for d/c and offered to meet with [employer] [facility] again but patient declines. Plan: patient to d/c to community upon medical clearance FABIOLA Hassan
== END 2023-08-25 15:41 | disposition home or self-care (01) ==
PROVIDERS: Emergency Provider Emergency Medicine; PCP Student in an Organized Health Care Education/Training Program
DX: R53.83 Other fatigue (principal); R52 Pain, unspecified
CPT/HCPCS: 80053; 80305; 80320; 81001; 83690; 85025; 99281; 99283

== ENCOUNTER 2023-08-25 19:45 | Emergency (ER) | payer OTHER, MEDICAID, SELFPAY ==
[2023-08-25 19:53] VITALS: BP 141/91; PULSE 94; RESP 18; TEMP 36.8; O2SAT 98; BMI 25.2
--- NOTE | 2023-08-25 20:37 | PC.NURSE ---
Brother in Law (Olinda) called w/ concerns for pts mental health stating that patient is homeless now, has delusions God told him to stay at his mothers house against her will, not working x 4 months. States he is delusional and paranoid. Discussed limits of ED, that pt is currently not SI/HI and has declined [facility] in past visits. I told him we would encourage mental health but could not mandate it at this time.
== END 2023-08-25 21:00 | disposition left against medical advice (07) ==
PROVIDERS: Emergency Provider Emergency Medicine; PCP Student in an Organized Health Care Education/Training Program
DX: R52 Pain, unspecified (principal)

== ENCOUNTER → 2023-12-19 14:58 | Outpatient (CLI) | payer OTHER, MEDICAID, SELFPAY ==
[2023-12-19 15:44] LABS: Add Manual Diff / Slide Review NO; Basophils Absolute Auto 100 /uL (0-100); Basophils Percent Auto 0.8 % (0-2); Eosinophils Absolute Auto 100 /uL (0-450); Eosinophils Percent Auto 2.3 % (2-4); Hematocrit 44.5 % (41-53); Hemoglobin 15.7 g/dL (13.5-17.5); Lymphocytes Absolute Auto 2800 /uL (1100-4500); Lymphocytes Percent Auto 43.2 % (25-40); Mean Corpuscular HGB Conc 35.3 % (30-36); Mean Corpuscular Hemoglobin 31.4 PG (26-34); Mean Corpuscular Volume 88.9 fL (80-100); Monocytes Absolute Auto 500 /uL (0-900); Monocytes Percent Auto 8.5 % (3-14); Neutrophils Absolute Auto 2900 /uL (1500-7000); Neutrophils Percent Auto 45.2 % (50-75); Platelet Count 241 X10^3/uL (150-400); Red Cell Distribution Width 12.4 % (11.6-14.8); White Blood Cell Count 6.4 X10^3/uL (4.5-11.0)
[2023-12-19 16:25] LABS: Erythrocyte Sedimentation Rate 1 MM/HR (0-15)
== END ==
LOC: LAB 15:01
PROVIDERS: PCP Family Medicine; Referring Provider Family Medicine; Visit Provider Family Medicine
DX: R53.83 Other fatigue (principal); M79.10 Myalgia, unspecified site; E80.6 Other disorders of bilirubin metabolism; E78.00 Pure hypercholesterolemia, unspecified
CPT/HCPCS: 36415; 85025; 85651

== ENCOUNTER → 2023-12-24 09:00 | Outpatient (CLI) | payer OTHER, MEDICAID, SELFPAY ==
--- NOTE | 2023-12-24 09:01 | DI.CT.S_ITS ---
PROCEDURE: CT ABDOMEN PELVIS W CON INDICATIONS: MYALGIA TECHNIQUE: After the administration of intravenous contrast, axial sections acquired from the lung bases to the pubic symphysis. Coronal and sagittal reformats were performed. For radiation dose reduction, the following was used: automated exposure control, adjustment of mA and/or kV according to patient size. COMPARISON: [facility], CT, CT ABDOMEN PELVIS W CON, 12/10/2021, 12:57. FINDINGS: Image quality: Diagnostic. Lower Chest: No significant findings. ABDOMEN: Liver: No solid mass. The most superior aspect of the liver is collimated from view. Gallbladder: No radiopaque gallstones or wall thickening. Biliary ducts: No biliary dilation. Pancreas: No ductal dilation. Spleen: Size is within normal limits. Adrenal Glands: No adrenal nodules. Kidneys and Ureters: No hydronephrosis. No solid mass. No complex renal cystic lesion which requires follow up. Stomach and Bowel: Normal colonic caliber, without significant wall thickening. Normal appendix. Peritoneum: No abnormal intraperitoneal fluid. No free air. Ventral Wall: No significant ventral hernia. Abdominal Nodes: No retroperitoneal or mesenteric adenopathy by size criteria. Vessels: Aorta and inferior vena cava are normal in size. PELVIS: Pelvic Organs: Unremarkable. Bladder: Mild urinary bladder wall thickening, nonspecific. Pelvic Nodes: No enlarged lymph nodes. Miscellaneous: No inguinal hernias are seen. Bones: No aggressive osseous abnormality. IMPRESSION: No findings to explain patient's symptoms. No acute findings within the abdomen or pelvis. Dictated by: Ron Mendieta M.D. on 12/24/2023 at 10:46 Approved by: Ron Mendieta M.D. on 12/24/2023 at 11:13
== END ==
LOC: CT 09:00
PROVIDERS: PCP Family Medicine; Referring Provider Family Medicine; Visit Provider Family Medicine
DX: E80.6 Other disorders of bilirubin metabolism (principal); R53.83 Other fatigue; M79.10 Myalgia, unspecified site; E78.00 Pure hypercholesterolemia, unspecified
CPT/HCPCS: 74177; Q9967